=== PATIENT | female | born 1985 | race Caucasian/White ===

== ENCOUNTER 2018-05-07 08:23 | Inpatient (IN) | payer MEDICAID ==
[~2018-05-07] VITALS: Ht 152.4 cm; Wt 44.0 kg
[2018-05-07] MEDS ORDERED: ESCI5TAB PO (08:28)
[2018-05-07] MEDS ORDERED: ONDANSETRON HCL 4MG/2ML INJ IV STA (09:22)
[2018-05-07] MEDS ORDERED: SODIUM CHLORIDE 0.9% 1,000 ML IV ONE (09:22)
[2018-05-07 09:45] LABS: HEMOGLOBIN. 13.3 g/dL (12.0-16.0); MEAN CORPUSCULAR HEMOGLOBIN 38.8 pg (28.0-32.0); MEAN CORPUSCULAR VOLUME 111.2 fL (81.0-99.0); MEAN PLATELET VOLUME 9.5 fl (7.4-10.4); PLATELET 64 x1000/uL (130-400); RED BLOOD CELL COUNT 3.42 mill/uL (4.2-5.4); RED CELL DISTRIBUTION WIDTH 14.7 % (11.6-14.6)
[2018-05-07 09:52] LABS: CHLORIDE 86 mEq/L (98-107)
[2018-05-07 09:54] LABS: INR 1.1; PROTHROMBIN TIME 10.7 sec (9.1-11.1)
[2018-05-07 09:56] LABS: ETHANOL BLOOD 263 mg/dL
[2018-05-07] MEDS ORDERED: KETOROLAC 15MG/ML VIAL IV ONE (10:15)
[2018-05-07 10:25] LABS: PLATELET ESTIMATE MARKEDLY DECREASED
[2018-05-07 12:10] LABS: CLARITY URINE CLEAR (CLEAR); COLOR URINE YELLOW (YELLOW); KETONES URINE NEGATIVE (NEGATIVE); LEUKOCYTE ESTERASE URINE NEGATIVE (NEGATIVE); NITRITE URINE NEGATIVE (NEGATIVE); OCCULT BLOOD URINE NEGATIVE (NEGATIVE); PH URINE 6.5 (4.5-8.0); PROTEIN URINE NEGATIVE (NEGATIVE); SPECIFIC GRAVITY URINE 1.005 (1.005-1.030)
[2018-05-07 12:26] LABS: *COCAINE SCREEN URINE NEGATIVE (NEGATIVE)
[2018-05-07 12:27] LABS: *AMPHETAMINES SCREEN URINE NEGATIVE (NEGATIVE); *BARBITURATES SCREEN URINE NEGATIVE (NEGATIVE); *BENZODIAZEPINES SCREEN URINE NEGATIVE (NEGATIVE); CANNABINOID URINE SCREEN NEGATIVE (NEGATIVE)
[2018-05-07 12:28] LABS: METHADONE URINE SCREEN NEGATIVE (NEGATIVE); PHENCYCLIDINE URINE SCREEN NEGATIVE (NEGATIVE)
[2018-05-07 12:30] LABS: OPIATES URINE SCREEN NEGATIVE (NEGATIVE)
[2018-05-07] MEDS ORDERED: ACETAMINOPHEN 325MG TABLET PO ONE (12:45)
[2018-05-07] MEDS ORDERED: SODIUM CHLORIDE 0.9% 1000ML BAG (SEPSIS BOLUS) IV ONE (12:45)
[2018-05-07 13:13] LABS: INR 1.1; PROTHROMBIN TIME 10.8 sec (9.1-11.1)
[2018-05-07] MEDS: SODIUM CHLORIDE 0.9% 1,000 ML IV SCH (13:13)
[2018-05-07] MEDS ORDERED: ACETAMINOPHEN 325MG TABLET PO PRN (13:15)
[2018-05-07] MEDS ORDERED: DOCUSATE SODIUM 100MG CAPSULE PO PRN (13:15)
[2018-05-07] MEDS ORDERED: CLONIDINE 0.1MG TABLET PO PRN (13:15)
[2018-05-07] MEDS ORDERED: MAGNESIUM/ALUMINUM HYDROXIDE/SIMETHICONE 30ML UDC PO PRN (13:15)
[2018-05-07] MEDS ORDERED: LORAZEPAM 0.5MG TABLET PO PRN (13:15)
[2018-05-07] MEDS ORDERED: ONDANSETRON HCL 4MG/2ML INJ IV PRN (13:15)
[2018-05-07 13:18] LABS: HCG SCREEN NEGATIVE
[2018-05-07] MEDS ORDERED: MEROPENEM 1,000 MG in SODIUM CHLORIDE 0.9% 100 ML IV ONE (14:00)
[2018-05-07] MEDS ORDERED: VANCOMYCIN 1 G PREMIX 200 ML IV ONE (14:00)
[2018-05-07 14:45] LABS: PHOSPHORUS 1.9 mg/dL (2.5-4.9)
[2018-05-07] MEDS ORDERED: MAGNESIUM 2 G PREMIX 50 ML IV ONE (15:00)
[2018-05-07 15:10] LABS: HEPATITIS B SURFACE ANTIGEN NEGATIVE
[2018-05-07 15:40] LABS: HEPATITIS A AB IGM NEGATIVE (NEGATIVE)
[2018-05-07 18:00] VITALS: BP 96/39
[2018-05-07 18:56] VITALS: BP 90/69
[2018-05-07 19:25] LABS: CREATINE KINASE 61 IU/L (26-192); CREATINE KINASE MB FRACTION < 1.0 ng/mL (0.5-3.6)
[2018-05-07] MEDS ORDERED: L10 PO (19:30)
[2018-05-07] MEDS ORDERED: MVI, ADULT NO.1 10 ML, FOLIC ACID 1 MG, THIAMINE HCL 100 MG in SODIUM CHLORIDE 0.9% 1,0... IV NR ×4 (19:30)
[2018-05-07] MEDS ORDERED: ABIL10 PO (19:33)
[2018-05-07] MEDS ORDERED: BECL10.62 IH (19:33)
[2018-05-07 20:00] VITALS: BP 103/68
[2018-05-07] MEDS ORDERED: PNEUMOCOCCAL 23-VAL P-SAC VAC 0.5 ML IM ONE (21:30)
[2018-05-07] MEDS: CHLORDIAZEPOXIDE 25MG CAPSULE PO SCH ×2 (21:47→22:00)
[2018-05-07 22:00] VITALS: BP 104/60
[2018-05-07] MEDS: LORAZEPAM 2MG/ML CPJ IV PRN (23:33)
[2018-05-07 23:36] LABS: CREATINE KINASE 43 IU/L (26-192)
[2018-05-07 23:37] LABS: CREATINE KINASE MB FRACTION < 1.0 ng/mL (0.5-3.6)
[2018-05-08] VITALS (96 sets, daily range): BP systolic 49–148; BP diastolic 19–112
[2018-05-08] MEDS: IPRATROPIUM/ALBUTEROL 0.5-3(2.5)MG/3ML NEB INH PRN ×2 (00:31→16:20)
[2018-05-08] MEDS ORDERED: GUAIFENESIN-DM 200MG-20MG/10ML UDC PO PRN (01:00)
[2018-05-08] MEDS: HYDROCODONE/ACETAMINOPHEN 5/325MG TABLET PO PRN ×2 (01:22→12:16)
[2018-05-08] MEDS: SODIUM CHLORIDE 0.9% 1,000 ML IV SCH ×2 (05:36→05:40)
[2018-05-08] MEDS: CHLORDIAZEPOXIDE 25MG CAPSULE PO SCH ×3 (06:14→21:24)
[2018-05-08 07:21] LABS: CHLORIDE 105 mEq/L (98-107)
[2018-05-08 07:31] LABS: HEMATOCRIT. 32.9 % (36.0-48.0); HEMOGLOBIN. 11.4 g/dL (12.0-16.0); MEAN CORPUSCULAR VOLUME 112.3 fL (81.0-99.0); MEAN PLATELET VOLUME 8.9 fl (7.4-10.4); RED BLOOD CELL COUNT 2.93 mill/uL (4.2-5.4); RED CELL DISTRIBUTION WIDTH 14.6 % (11.6-14.6)
[2018-05-08 07:43] LABS: LDL CHOLESTEROL 59 mg/dL (5-100)
[2018-05-08 07:47] LABS: HDL CHOLESTEROL 23 mg/dL (40-59)
[2018-05-08 08:07] LABS: PLATELET 11 x1000/uL (130-400)
[2018-05-08 08:23] LABS: BG BASE EXCESS -5.6 mmol/L (-2.0-2.0); BG CARBOXYHEMOGLOBIN 0.4 % (0.5-1.5); BG DEOXYHEMOGLOBIN 10.2 % (0.0-5.0); BG FRACTION INSPIRED OXYGEN 99.8; BG HCO3 ACT 19.8 mmol/L (22.0-26.0); BG METHEMOGLOBIN 0.3 % (0.0-1.5); BG OXYGEN SATURATION 89.7 % (92.0-98.5); BG OXYHEMOGLOBIN 89.1 % (94.0-97.0); BG PCO2 38.1 mmHg (35.0-45.0); BG PH 7.333 (7.350-7.450); BG PO2 62.6 mmHg (75.0-100.0); BG SAMPLE SITE RIGHT RADIAL; BG TOTAL HEMOGLOBIN 12.2 g/dL (12.0-18.0); BG VENT MODE MASK - NRB
[2018-05-08] MEDS ORDERED: THIAMINE HCL 100MG TABLET PO SCH (09:00)
[2018-05-08] MEDS ORDERED: POTASSIUM CHLORIDE 20MEQ TABLET SR PO SCH (09:00)
[2018-05-08] MEDS ORDERED: DEXTROSE 50% WATER 50ML SYRINGE IV SCH (09:00)
[2018-05-08] MEDS ORDERED: FOLIC ACID 1MG TABLET PO SCH (09:00)
[2018-05-08] MEDS ORDERED: MULTIVITAMINS,THER W-MINERALS TABLET PO SCH (09:00)
[2018-05-08] MEDS ORDERED: SODIUM CHLORIDE 0.9% 250 ML IV ONE ×2 (09:25→09:30)
[2018-05-08 09:50] LABS: PHOSPHORUS 2.3 mg/dL (2.5-4.9)
[2018-05-08] MEDS ORDERED: POTASSIUM CHLORIDE INJ 40 MEQ in DEXT 5% WATER 250 ML IV SCH (10:00)
[2018-05-08 11:36] LABS: PLATELET ESTIMATE MARKEDLY DECREASED
[2018-05-08] MEDS ORDERED: NOREPINEPHRINE 4 MG in DEXT 5% WATER 246 ML IV PRN ×2 (11:45→12:00)
[2018-05-08] MEDS ORDERED: MAGNESIUM 2 G PREMIX 50 ML IV SCH (12:00)
[2018-05-08] MEDS ORDERED: DEXTROSE 50% WATER 50ML SYRINGE IV NR (14:00)
[2018-05-08] MEDS: DEXT 5%/0.9% NACL 1,000 ML IV SCH ×2 (14:49→21:24)
[2018-05-08] MEDS ORDERED: LEVOFLOXACIN 500MG PREMIX 100 ML IV SCH (15:00)
[2018-05-08] MEDS ORDERED: FILGRASTIM 300 MCG/ML VIAL SUBCUT SCH (15:30)
[2018-05-08] MEDS ORDERED: FILGRASTIM-TBO 300 MCG/0.5 ML SYRINGE SQ SCH (16:00)
[2018-05-08] MEDS: BLOOD SUGAR DIAGNOSTIC STRIP TEST SCH ×3 (16:07→23:08)
[2018-05-08] MEDS ORDERED: BLOOD SUGAR DIAGNOSTIC STRIP TEST SCH (16:30)
[2018-05-08] MEDS ORDERED: SODIUM PHOS,M-BASIC-D-BASIC 30 MM in DEXT 5% WATER 500 ML IV NR (16:30)
[2018-05-08 16:43] LABS: BG BASE EXCESS -15.2 mmol/L (-2.0-2.0); BG CARBOXYHEMOGLOBIN 0.3 % (0.5-1.5); BG DEOXYHEMOGLOBIN 16.9 % (0.0-5.0); BG HCO3 ACT 13.2 mmol/L (22.0-26.0); BG METHEMOGLOBIN 0.2 % (0.0-1.5); BG OXYHEMOGLOBIN 82.6 % (94.0-97.0); BG PCO2 40.4 mmHg (35.0-45.0); BG PH 7.132 (7.350-7.450); BG PO2 57.6 mmHg (75.0-100.0); BG SAMPLE SITE RIGHT BRACHIAL; BG TOTAL HEMOGLOBIN 11.4 g/dL (12.0-18.0); BG VENT MODE MASK - NRB
[2018-05-08] MEDS: LORAZEPAM 2MG/ML CPJ IV PRN (16:45)
[2018-05-08] MEDS ORDERED: SODIUM BICARBONATE 8.4% 1 MEQ/ML 50ML SYR IV NR ×3 (17:00→22:00)
[2018-05-08] MEDS: NOREPINEPHRINE 16 MG in DEXT 5% WATER 234 ML IV PRN (18:00)
[2018-05-08] MEDS ORDERED: PHENYLEPHRINE 10 MG in DEXT 5% WATER 249 ML IV PRN (18:00)
[2018-05-08] MEDS ORDERED: FOLIC ACID 1 MG, THIAMINE HCL 100 MG, MVI, ADULT NO.1 10 ML in DEXTROSE 5% WATER 1,000 ML IV ONE ×4 (19:00)
[2018-05-08 19:37] LABS: BG BASE EXCESS -20.6 mmol/L (-2.0-2.0); BG CARBOXYHEMOGLOBIN 0.3 % (0.5-1.5); BG DEOXYHEMOGLOBIN 12.6 % (0.0-5.0); BG FRACTION INSPIRED OXYGEN 100; BG METHEMOGLOBIN 0.5 % (0.0-1.5); BG OXYGEN SATURATION 87.3 % (92.0-98.5); BG OXYHEMOGLOBIN 86.6 % (94.0-97.0); BG PH 7.027 (7.350-7.450); BG PO2 71.5 mmHg (75.0-100.0); BG SAMPLE SITE RIGHT RADIAL; BG TIDAL VOLUME(mL) 400 mL; BG TOTAL HEMOGLOBIN 9.3 g/dL (12.0-18.0); BG VENT MODE VENT - A/C; BG VENT RATE 12 set
[2018-05-08] MEDS: PHENYLEPHRINE 80 MG in DEXT 5% WATER 492 ML IV PRN (19:48)
[2018-05-08] MEDS: EPINEPHRINE 1 MG in SODIUM CHLORIDE 0.9% 249 ML IV PRN ×2 (19:50→22:57)
[2018-05-08] MEDS: IPRATROPIUM/ALBUTEROL 0.5-3(2.5)MG/3ML NEB HHN SCH (20:26)
[2018-05-08] MEDS ORDERED: RIFAXIMIN 550 MG TABLET PO SCH (21:00)
[2018-05-08 21:41] LABS: BG BASE EXCESS -20.6 mmol/L (-2.0-2.0); BG CARBOXYHEMOGLOBIN 0.3 % (0.5-1.5); BG DEOXYHEMOGLOBIN 16.5 % (0.0-5.0); BG FRACTION INSPIRED OXYGEN 100; BG HCO3 ACT 9.1 mmol/L (22.0-26.0); BG METHEMOGLOBIN 0.6 % (0.0-1.5); BG OXYGEN SATURATION 83.4 % (92.0-98.5); BG OXYHEMOGLOBIN 82.6 % (94.0-97.0); BG PCO2 35.5 mmHg (35.0-45.0); BG PH 7.027 (7.350-7.450); BG PO2 61.1 mmHg (75.0-100.0); BG SAMPLE SITE RIGHT FEMORAL; BG TIDAL VOLUME(mL) 400 mL; BG TOTAL HEMOGLOBIN 10.2 g/dL (12.0-18.0); BG VENT MODE VENT - A/C; BG VENT RATE 16 set
[2018-05-08] MEDS ORDERED: NACL IV SCH (22:00)
[2018-05-08] MEDS ORDERED: SODIUM BICARBONATE IV SCH (22:00)
[2018-05-08] MEDS ORDERED: DEXT IV SCH (22:00)
[2018-05-08] MEDS ORDERED: SODIUM BICARBONATE 100 MEQ in DEXTROSE 5% WATER 1,000 ML IV SCH (22:30)
[2018-05-08 23:27] LABS: BG CARBOXYHEMOGLOBIN 0.4 % (0.5-1.5); BG DEOXYHEMOGLOBIN 18.1 % (0.0-5.0); BG FRACTION INSPIRED OXYGEN 100; BG HCO3 ACT 10.3 mmol/L (22.0-26.0); BG METHEMOGLOBIN 0.4 % (0.0-1.5); BG OXYGEN SATURATION 81.8 % (92.0-98.5); BG OXYHEMOGLOBIN 81.1 % (94.0-97.0); BG PCO2 33.5 mmHg (35.0-45.0); BG PH 7.104 (7.350-7.450); BG SAMPLE SITE RIGHT FEMORAL; BG TIDAL VOLUME(mL) 400 mL; BG TOTAL HEMOGLOBIN 8.6 g/dL (12.0-18.0); BG VENT MODE VENT - A/C; BG VENT RATE 18 set
[2018-05-09] VITALS (19 sets, daily range): BP systolic 64–136; BP diastolic 30–76
[2018-05-09] MEDS ORDERED: SODIUM BICARBONATE 8.4% 1 MEQ/ML 50ML SYR IV NR
[2018-05-09] MEDS: EPINEPHRINE 1 MG in SODIUM CHLORIDE 0.9% 249 ML IV PRN ×3 (00:37→04:34)
[2018-05-09] MEDS: DEXTROSE 50% WATER 50ML SYRINGE IV PRN ×3 (00:40→03:15)
[2018-05-09] MEDS: IPRATROPIUM/ALBUTEROL 0.5-3(2.5)MG/3ML NEB HHN SCH (02:09)
[2018-05-09] MEDS: NOREPINEPHRINE 16 MG in DEXT 5% WATER 234 ML IV PRN (02:21)
[2018-05-09] MEDS: PHENYLEPHRINE 80 MG in DEXT 5% WATER 492 ML IV PRN (02:22)
[2018-05-09] MEDS: BLOOD SUGAR DIAGNOSTIC STRIP TEST SCH (03:32)
[2018-05-09] MEDS ORDERED: AZTREONAM 2 GM in DEXT 5% WATER 100 ML IV SCH (09:00)
[2018-05-09] MEDS ORDERED: EPINEPHRINE 0.1MG/ML (1:10,000) 10ML SYR ONE ×3 (12:32→12:44)
[2018-05-09] MEDS ORDERED: DEXTROSE 50% WATER 50ML SYRINGE IV ONE ×3 (12:32→12:44)
[2018-05-09] MEDS ORDERED: SODIUM BICARBONATE 7.5% 0.9 MEQ/ML 50ML SYR IV ONE ×2 (12:32→12:36)
[2018-05-09] MEDS ORDERED: ATROPINE SULFATE 1MG/10ML SYR ONE (12:44)
[2018-05-09 13:06] LABS: HIV SCREEN 4G Non Reactive (Non Reactive)
[2018-05-09] MEDS ORDERED: ETOMIDATE 2MG/ML 10ML VIAL IV ONE (15:47)
[2018-05-09] MEDS ORDERED: SUCCINYLCHOLINE CHLORIDE 200MG/10ML IV ONE (15:47)
[2018-05-09] MEDS ORDERED: FILGRASTIM-TBO 300 MCG/0.5 ML SYRINGE SQ SCH (21:00)
== END 2018-05-09 07:49 | disposition expired | DRG 720 ==
LOC: ER 08:33 → 5EST 14:06 → EDBEDREQ 14:08 → EDBEDREQTM 14:08 → ENRESERV 16:01 → MICUNO 05-08 08:32
PROVIDERS: ADMIT Internal Medicine; ATTEND Internal Medicine
PROC: 02HV33Z Insertion of Infusion Device into Superior Vena Cava, Percutaneous Approach (ICD-10-PCS; principal; 2018-05-08)
PROC: 5A1935Z Respiratory Ventilation, Less than 24 Consecutive Hours (ICD-10-PCS; 2018-05-08)
PROC: B5181ZA Fluoroscopy of Superior Vena Cava using Low Osmolar Contrast, Guidance (ICD-10-PCS; 2018-05-08)
PROC: 30233R1 Transfusion of Nonautologous Platelets into Peripheral Vein, Percutaneous Approach (ICD-10-PCS; 2018-05-08)
PROC: 5A12012 Performance of Cardiac Output, Single, Manual (ICD-10-PCS; 2018-05-08)
PROC: 0BH17EZ Insertion of Endotracheal Airway into Trachea, Via Natural or Artificial Opening (ICD-10-PCS; 2018-05-08)
PROC: B548ZZA Ultrasonography of Superior Vena Cava, Guidance (ICD-10-PCS; 2018-05-08)
DX: A41.9 Sepsis, unspecified organism (principal); J96.01 Acute respiratory failure with hypoxia; R65.21 Severe sepsis with septic shock; D61.818 Other pancytopenia; J18.9 Pneumonia, unspecified organism; E87.2 Acidosis; K70.10 Alcoholic hepatitis without ascites; K70.30 Alcoholic cirrhosis of liver without ascites; K70.40 Alcoholic hepatic failure without coma; E83.39 Other disorders of phosphorus metabolism; E83.42 Hypomagnesemia; E87.1 Hypo-osmolality and hyponatremia; E87.6 Hypokalemia; E88.09 Other disorders of plasma-protein metabolism, not elsewhere classified; F10.229 Alcohol dependence with intoxication, unspecified; F10.239 Alcohol dependence with withdrawal, unspecified; F17.210 Nicotine dependence, cigarettes, uncomplicated; F31.9 Bipolar disorder, unspecified; F41.0 Panic disorder [episodic paroxysmal anxiety]; S70.02XA Contusion of left hip, initial encounter; K71.9 Toxic liver disease, unspecified; Y90.8 Blood alcohol level of 240 mg/100 ml or more; X58.XXXA Exposure to other specified factors, initial encounter; Z90.49 Acquired absence of other specified parts of digestive tract; Y93.89 Activity, other specified; Y92.89 Other specified places as the place of occurrence of the external cause; Y99.8 Other external cause status; Z88.0 Allergy status to penicillin
CPT/HCPCS: 31500; 36415; 36569; 36600; 71045; 76700; 76937; 80061; 80305; 82140; 82375; 82550; 82553; 82805; 82962; 83605; 83735; 83880; 84100; 84145; 84443; 84484; 84703; 86705; 86709; 86803; 86850; 86900; 86945; 87340; 87389; 93005; 93306; 93970; 94002; 94640; 96361; 96374; 96375; 99291; C1725; G0482; J0330; J0461; J1442; J1885; J1956; J2060; J2185; J2370; J2405; J3370; J3411; J3475; J3480; J3490; J7030; J7040; J7042; J7050; J7060; J7070; J7620; P9034